=== PATIENT | male | born 1960 | race Caucasian/White ===

== ENCOUNTER 2018-08-04 08:16 | Day surgery (SDC) | payer BC ==
[2018-08-04] MEDS: SOD CHLORIDE 0.9% 1,000 ML IV (09:00)
[2018-08-04] MEDS: BUPIVACAINE 0.25% (MPF) 30 ML INJ (10:49)
[2018-08-04] MEDS ORDERED: PROPOFOL 20 ML (10:57)
[2018-08-04] MEDS ORDERED: GLYCOPYRROLATE 0.4 MG INJ (10:57)
[2018-08-04] MEDS ORDERED: CEFAZOLIN 1 GM INJ (10:57)
[2018-08-04] MEDS ORDERED: ROCURONIUM 50 MG INJ (10:57)
[2018-08-04] MEDS ORDERED: NEOSTIGMINE 3 MG/3 ML SYRINGE (10:57)
[2018-08-04] MEDS ORDERED: KETOROLAC 30 MG INJ (10:57)
[2018-08-04] MEDS ORDERED: DESFLURANE 15 MIN (10:57)
[2018-08-04] MEDS ORDERED: MIDAZOLAM 1 MG/ML 2 ML INJ (10:58)
[2018-08-04] MEDS ORDERED: FENTAnyl 50 MCG/ML VIAL ×3 (10:58→15:10)
[2018-08-04] MEDS ORDERED: ONDANSETRON 4 MG INJ (10:58)
[2018-08-04] MEDS ORDERED: DEXAMETHASONE 4 MG/ML 5 ML INJ (10:58)
[2018-08-04] MEDS ORDERED: ROPIVACAINE 0.5 % 30 ML VIAL (10:58)
[2018-08-04] MEDS ORDERED: MIDAZOLAM 1 MG/ML 2 ML INJ IV (11:00)
[2018-08-04] MEDS ORDERED: ONDANSETRON 4 MG INJ IV (11:00)
[2018-08-04] MEDS ORDERED: ALBUTEROL 0.083% (NEB) 2.5 MG/3 ML AMP HHN (11:00)
[2018-08-04] MEDS ORDERED: IPRATROPIUM (NEB) 0.5 MG/2.5 ML AMP HHN (11:00)
[2018-08-04] MEDS ORDERED: EPHEDrine 25 MG/5 ML SYG IV (11:00)
[2018-08-04] MEDS ORDERED: LABETALOL HCL 20MG INJ IV (11:00)
[2018-08-04] MEDS ORDERED: DIPHENHYDRAMINE 50 MG INJ IV (11:00)
[2018-08-04] MEDS ORDERED: HYDROmorphONE 1 MG/5 ML IV SYRINGE IV (11:00)
[2018-08-04] MEDS ORDERED: hydrALAzine 20 MG INJ IV (11:00)
[2018-08-04] MEDS ORDERED: OXYCODONE/ACETAMINOPHEN (5/325) TAB PO ×2 (11:00)
[2018-08-04] MEDS: CEFAZOLIN 1 GM/50 ML (PMX) 50 ML IVPB (11:16)
[2018-08-04] MEDS: FENTAnyl 50 MCG/ML VIAL IV ×3 (12:38→13:13)
[2018-08-04] MEDS: HYDROmorphONE 1 MG/5 ML IV SYRINGE IV ×2 (12:38→13:05)
[2018-08-04] MEDS: HYDROCODONE/APAP (5/325) TAB PO (13:04)
[2018-08-04] MEDS: MEPERIDINE 25 MG INJ IV (13:12)
[2018-08-04] MEDS: TRIMETHOBENZAMIDE 100 MG/ML VIAL IM (13:13)
[2018-08-04] MEDS ORDERED: FAMOTIDINE 20 MG INJ (15:10)
== END 2018-08-04 14:59 | disposition home or self-care (01) ==
LOC: SDS 08:16
DX: K80.10 Calculus of gallbladder with chronic cholecystitis without obstruction (principal); F32.9 Major depressive disorder, single episode, unspecified; K21.9 Gastro-esophageal reflux disease without esophagitis; J44.9 Chronic obstructive pulmonary disease, unspecified; Z82.49 Family history of ischemic heart disease and other diseases of the circulatory system; Z83.3 Family history of diabetes mellitus
CPT/HCPCS: 47562; 88304